=== PATIENT | female | born 1960 | race Caucasian/White ===

== ENCOUNTER 2018-06-15 13:50 | Emergency (ER) | payer BC ==
[~2018-06-15] VITALS: Ht 160 cm; Wt 67.1 kg
[~2018-06-15 13:50] MED LIST: ADVIL200 M1 PO; CARISOPRODOL350 MG PO; ULTRAM50 MG PO
--- OUTSIDE RECORDS SUMMARY | 2018-06-15 13:55 | XMS REPORT | Clinical Summary ---
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 Active escitalopram (LEXAPRO) 20 Take 20 mg by 0 MG tablet mouth every morning. Active HYDROcodone-acetaminophen Take 1 tablet 0 (NORCO) 10-325 mg per by mouth tablet every 6 (six) hours as needed for moderate pain. Active amoxicillin (AMOXIL) 875 Take 875 mg 0 MG tablet by mouth every 4 (four) hours. 06/17/2017 Discontinued clonAZEPAM (KlonoPIN) 0.5 0 06/06/201 MG tablet 8 06/17/2017 Discontinued carisoprodol (SOMA) 350 0 MG tablet 8 08/12/2017 Discontinued meloxicam (MOBIC) 15 mg Take 15 mg by 0 tablet mouth as 8 needed. 11/14/2017 Discontinued ULTRAM 50 mg tablet Take 50 mg by 0 mouth every 8 12 (twelve) hours. 06/17/2017 Discontinued carisoprodol (SOMA) 350 Take 350 mg 0 MG tablet by mouth 3 8 (three) times a day as needed. 06/17/2017 Discontinued meloxicam (MOBIC) 15 mg 0 tablet 8 04/02/2018 Discontinued carisoprodol (SOMA) 350 Take 350 mg 0 MG tablet by mouth 3 7 (three) times a day as needed. 07/03/2017 Discontinued mupirocin (BACTROBAN) 2 % Apply to 15 g 0 ointment nostrils 8 twice daily the day before surgery then once again the morning of and bring remainder with you . 08/02/2017 aspirin (ECOTRIN) 325 MG Take 1 tablet 60 tablet 0 enteric coated tablet (325 mg 8 total) by mouth 2 (two) times a day for 30 days. 07/21/2017 acetaminophen-codeine Take 1-2 40 tablet 0 (TYLENOL WITH CODEINE #3) tablets by 8 300-30 mg per tablet mouth every 6 (six) hours as needed for moderate pain for up to 10 days. 08/20/2017 Discontinued acetaminophen-codeine Take 1 tablet 10 tablet 0 (TYLENOL WITH CODEINE #3) by mouth 8 300-30 mg per tablet every 6 (six) hours as needed for moderate pain for up to 3 days. 09/19/2017 aspirin 81 mg chewable Chew 1 tablet 60 tablet 0 tablet (81 mg total) 8 2 (two) times a day for 30 days. 09/19/2017 docusate sodium (COLACE) Take 1 60 capsule 0 100 MG capsule capsule (100 8 mg total) by mouth 2 (two) times a day for 30 days. 09/06/2017 acetaminophen-codeine Take 1-2 40 tablet 0 (TYLENOL WITH CODEINE #3) tablets by 8 300-30 mg per tablet mouth every 6 (six) hours as needed for moderate pain for up to 10 days. 09/16/2017 acetaminophen-codeine Take 1-2 30 tablet 0 (TYLENOL WITH CODEINE #3) tablets by 8 300-30 mg per tablet mouth every 4 (four) hours as needed for moderate pain for up to 10 days. 09/30/2017 acetaminophen-codeine Take 1 tablet 30 tablet 0 (TYLENOL WITH CODEINE #3) by mouth 8 300-30 mg per tablet every 6 (six) hours as needed for moderate pain for up to 10 days. 10/02/2017 Discontinued acetaminophen-codeine Take 1-2 30 tablet 0 (TYLENOL WITH CODEINE #3) tablets by 8 300-30 mg per tablet mouth every 6 (six) hours as needed for moderate pain for up to 10 days. 10/11/2017 Discontinued acetaminophen-codeine Take 1-2 30 tablet 0 (TYLENOL WITH CODEINE #3) tablets by 8 300-30 mg per tablet mouth every 6 (six) hours as needed for moderate pain for up to 10 days. 10/11/2017 Discontinued acetaminophen-codeine Take 1-2 30 tablet 0 (TYLENOL WITH CODEINE #3) tablets by 8 300-30 mg per tablet mouth every 6 (six) hours as needed for moderate pain for up to 10 days. 10/18/2017 acetaminophen-codeine Take 1 tablet 30 tablet 0 (TYLENOL WITH CODEINE #3) by mouth 8 300-30 mg per tablet every 6 (six) hours as needed for moderate pain for up to 7 days. 11/07/2017 traMADol (ULTRAM) 50 mg Take 1 tablet 30 tablet 0 tablet (50 mg total) 8 by mouth every 6 (six) hours as needed for moderate pain for up to 10 days. 11/21/2017 ULTRAM 50 mg tablet Take 1 tablet 30 tablet 0 (50 mg total) 8 by mouth every 6 (six) hours as needed for moderate pain for up to 7 days. 12/07/2017 traMADol (ULTRAM) 50 mg Take 1 tablet 30 tablet 0 tablet (50 mg total) 8 by mouth every 6 (six) hours as needed for moderate pain for up to 10 days. 12/16/2017 acetaminophen-codeine Take 1-2 30 tablet 0 (TYLENOL WITH CODEINE #3) tablets by 8 300-30 mg per tablet mouth every 6 (six) hours as needed for mild pain for up to 10 days. 12/19/2017 Discontinued traMADol (ULTRAM) 50 mg Take 1 tablet 30 tablet 0 tablet (50 mg total) 8 by mouth every 6 (six) hours as needed for moderate pain for up to 10 days. 12/29/2017 traMADol (ULTRAM) 50 mg Take 1 tablet 30 tablet 0 201 tablet (50 mg total) 8 by mouth every 6 (six) hours as needed for moderate pain for up to 10 days. 12/29/2017 traMADol (ULTRAM) 50 mg Take 1 tablet 30 tablet 0 tablet (50 mg total) 8 by mouth every 6 (six) hours as needed for moderate pain for up to 10 days. 01/09/2018 traMADol (ULTRAM) 50 mg Take 1 tablet 30 tablet 0 tablet (50 mg total) 8 by mouth every 6 (six) hours as needed for moderate pain for up to 10 days. 01/19/2018 traMADol (ULTRAM) 50 mg Take 1 tablet 30 tablet 0 tablet (50 mg total) 8 by mouth every 6 (six) hours as needed for moderate pain for up to 10 days. 02/02/2018 acetaminophen-codeine Take 1-2 30 tablet 0 (TYLENOL WITH CODEINE #3) tablets by 8 300-30 mg per tablet mouth every 6 (six) hours as needed for mild pain for up to 10 days. 02/09/2018 acetaminophen-codeine Take 1-2 30 tablet 0 (TYLENOL WITH CODEINE #3) tablets by 8 300-30 mg per tablet mouth every 6 (six) hours as needed for mild pain for up to 10 days. 03/02/2018 acetaminophen-codeine Take 1-2 30 tablet 0 (TYLENOL WITH CODEINE #3) tablets by 8 300-30 mg per tablet mouth every 6 (six) hours as needed for mild pain for up to 10 days. 03/21/2018 acetaminophen-codeine Take 1-2 30 tablet 0 (TYLENOL WITH CODEINE #3) tablets by 8 300-30 mg per tablet mouth every 4 (four) hours as needed for moderate pain for up to 10 days. 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 Overview: Added automatically from request for surgery [id number] Arthritis of right hip 07/01/2017 Arthritis of left hip 06/12/2017 Encounters Care Team Description Date Type Specialty Aaron Perkins MD INJECTION, HIP; ASPIRATION 04/04/2018 Surgery Orthopedic Surgery Ed Hernandez MD 04/04/2018 Anesthesia Orthopedic Surgery Event Aaron Perkins MD Arthritis of left hip (Primary Dx) 04/04/2018 Hospital Orthopedic Surgery Encounter Aaron May MD 04/02/2018 Anesthesia Orthopedic Surgery Event Favian Fournier MD Canceled INJECTION, HIP; ASPIRATION 04/02/2018 Surgery Orthopedic Surgery Favian Fournier MD 04/02/2018 Hospital Orthopedic Surgery Encounter Moriah Hook MA 04/02/2018 Orders Only Orthopedic Surgery Moriah Hook MA 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, initial encounter (HCC) (Primary Dx) 04/02/2018 Orders Only Orthopedic Surgery Aaron Perkins MD Left hip pain 03/31/2018 Lab Lab Asked, No Pcp Aaron Perkins MD Left hip pain 03/31/2018 Hospital Radiology Encounter Aaron Perkins MD 03/31/2018 Hospital Radiology Encounter Aaron Perkins MD Status post left hip replacement (Primary Dx); Status post right hip replacement; Pain of left hip joint; Left hip pain 03/26/2018 Office Visit Orthopedic Surgery Roopa Orozco MA Left hip pain (Primary Dx) 03/26/2018 Orders Only Orthopedic Surgery Roopa Orozco MA Left hip pain (Primary Dx) 03/26/2018 Orders Only Orthopedic Surgery Roopa Orozco MA Left hip pain (Primary Dx) 03/26/2018 Orders Only Orthopedic Surgery Aaron Perkins MD 03/19/2018 Abstract Orthopedic Surgery Aaron Perkins MD Presence of left artificial hip joint (Primary Dx) 03/19/2018 Transcribe Physical Therapy Orders Yamini Murillo 03/11/2018 Orders Only Orthopedic Surgery Roopa Orozco MA 02/20/2018 Orders Only Sports Medicine Aaron Perkins MD 02/18/2018 Abstract Orthopedic Surgery Aaron Perkins MD 02/10/2018 Refill Orthopedic Surgery Aaron Perkins MD 02/10/2018 Refill Orthopedic Surgery Roopa Orozco MA 01/30/2018 Orders Only Orthopedic Surgery Roopa Orozco MA 01/30/2018 Orders Only Orthopedic Surgery Roopa Orozco MA H/O total hip arthroplasty, left (Primary Dx) 01/23/2018 Orders Only Orthopedic Surgery Orozco, Roopa, MA 01/23/2018 Orders Only Orthopedic Surgery Orozco, Roopa, [place] 01/09/2018 Orders Only Orthopedic Surgery Orozco, Roopa, [place] 01/09/2018 Orders Only Orthopedic Surgery Orozco, Roopa, [place] 12/30/2017 Orders Only Orthopedic Surgery Aaron Perkins MD 12/27/2017 Refill Orthopedic Surgery Orozco, Roopa, [place] 12/19/2017 Orders Only Orthopedic Surgery Orozco, Roopa, [place] 12/13/2017 Orders Only Orthopedic Surgery IncAaron bell MD Status post left hip replacement (Primary Dx) 12/06/2017 Office Visit Orthopedic Surgery Orozco, Roopa, [place] 12/06/2017 Orders Only Orthopedic Surgery Orozco, Roopa, [place] Left hip pain (Primary Dx) 12/06/2017 Orders Only Orthopedic Surgery Orozco, Roopa, MA 11/28/2017 Orders Only Orthopedic Surgery Orozco, Roopa, [place] 11/27/2017 Orders Only Orthopedic Surgery Schultz, Nayely, MA 11/14/2017 Orders Only Orthopedic Surgery Orozco, Roopa, MA 10/28/2017 Orders Only Orthopedic Surgery Schultz, Nayely, MA 10/11/2017 Orders Only Orthopedic Surgery Orozco, Roopa, MA 10/02/2017 Orders Only Orthopedic Surgery Orozco, Roopa, MA 10/02/2017 Orders Only Orthopedic Surgery Oorzco, Roopa, MA 10/02/2017 Orders Only Orthopedic Surgery Schultz, Nayely, MA 09/20/2017 Orders Only Orthopedic Surgery Orozco, Roopa, [place] 09/06/2017 Orders Only Orthopedic Surgery Aaron Perkins MD Status post left hip replacement (Primary Dx) 09/05/2017 Office Visit Orthopedic Surgery Sugey Schultze, MA 08/27/2017 Orders Only Orthopedic Surgery Aaron Perkins MD ARTHROPLASTY, HIP, TOTAL 08/19/2017 Surgery Orthopedic Surgery Shanti Hernandez APRN 08/19/2017 Anesthesia Orthopedic Surgery Event Aaron Perkins MD Arthritis of left hip 08/19/2017 Hospital Orthopedic Surgery - Encounter 08/20/2017 Nayely Schultz, MA 08/16/2017 Orders Only Orthopedic Surgery Aaron Perkins MD Preoperative testing (Primary Dx) 08/12/2017 Pre-Admit Pre-Admission Testing Testing Appointment Aaron Perkins MD Status post right hip replacement (Primary Dx); Arthritis of left hip 07/18/2017 Office Visit Orthopedic Surgery Nayely Schultz MA 07/11/2017 Orders Only Orthopedic Surgery Roopa Orozco MA 07/03/2017 Telephone Orthopedic Surgery Aaron Perkins MD ARTHROPLASTY, HIP, TOTAL 07/02/2017 Surgery Orthopedic Surgery Shanti Hernandez, [employer] 07/02/2017 Anesthesia Orthopedic Surgery Event Aaron Perkins MD Arthritis of right hip 07/02/2017 Hospital Orthopedic Surgery - Encounter 07/03/2017 Roopa Orozco MA 07/01/2017 Orders Only Orthopedic Surgery Aaron Perkins MD 06/17/2017 Hospital Radiology Encounter Aaron Perkins MD Pre-op testing (Primary Dx) 06/17/2017 Pre-Admit Pre-Admission Testing Testing Appointment after 06/14/2017 Social History Date Tobacco Use Types Packs/Day Years Used Quit: 06/16/2017 Current Every Day Smoker Cigarettes 1 30 Smokeless Tobacco: Never Used Alcohol Use Drinks/Week oz/Week Comments Yes 3-4 drinks a week Sex Assigned at Date Recorded Not on file Industry Job Start Date Occupation Not on file Not on file Not on file Travel End Travel History Travel Start No recent travel history available. Last Filed Vital Signs Time Taken Vital Sign Reading 04/04/2018 10:15 AM OUTREACH TEAM MEMBER Blood Pressure 140/73 04/04/2018 10:15 AM OUTREACH TEAM MEMBER Pulse 63 04/04/2018 10:15 AM OUTREACH TEAM MEMBER Temperature 36.8 C (98.3 F) 04/04/2018 10:15 AM OUTREACH TEAM MEMBER Respiratory Rate 16 04/04/2018 10:15 AM OUTREACH TEAM MEMBER Oxygen Saturation 96% - Inhaled Oxygen - Concentration 04/04/2018 7:06 AM OUTREACH TEAM MEMBER Weight 72.9 kg (160 lb 11.2 oz) 04/04/2018 7:06 AM OUTREACH TEAM MEMBER Height 160 cm (5' 3") 04/04/2018 7:06 AM OUTREACH TEAM MEMBER Body Mass Index 28.47 Plan of Treatment Health Maintenance Due Date Last Done Comments CERVICAL CANCER SCREENING 08/06/1980 BREAST CANCER SCREENING 08/06/2009 COLON CANCER SCREENING 08/06/2009 SHINGLES VACCINES (#1) 08/06/2009 INFLUENZA VACCINE 11/20/2017 Implants Device Identifier Shelf Expiration Date Model / Serial / Lot Implanted Type Area Manufactur er 06/08/2027 [id number] / / [id number] Acetabular Shell 3 Hole - IPM Right: Hip BIOMET, [id number] [employer] Implanted: 07/02/2017 (Quantity not DEVICES on file) 04/18/2022 [id number] / / [id number] Neutral E1 Liner 36mm E - IPM Right: Hip BIOMET, [id number] [employer] Implanted: 07/02/2017 (Quantity not DEVICES on file) 01/30/2027 [id number] / / [id number] Tprlc 133 Fp Type1 Pps So 6.0, IPM Right: Hip BIOMET, Taperloc Complete Stem - [id number] [employer] Implanted: 07/02/2017 (Quantity not DEVICES on file) 12/27/2026 [id number] / / [id number] Cer Bioloxd Mod Hd 36mm -3 Nk - IPM Right: Hip BIOMET, [id number] [employer] Implanted: 07/02/2017 (Quantity not DEVICES on file) 05/05/2027 [id number] / / [id number] Acetabular Shell 3 Hole - IPM Left: Hip BIOMET, [id number] [employer] Implanted: Qty: 1 on 08/19/2017 by Aaron Abernathy MD 05/21/2022 [id number] / / [id number] Neutral E1 Liner 36mm E - IPM Left: Hip BIOMET, [id number] [employer] Implanted: Qty: 1 on 08/19/2017 by Aaron Abernathy MD 05/14/2027 [id number] / / [id number] Tprlc 133 Fp Type1 Pps So 6.0, IPM Left: Hip BIOMET, Taperloc Complete Stem - [id number] [employer] Implanted: Qty: 1 on 08/19/2017 by Aaron Abernathy MD 01/02/2027 12 [id number] / / [id number] Cer Bioloxd Mod Hd 36mm -3 Nk - IPM Left: Hip BIOMET, [id number] [employer] Implanted: Qty: 1 on 08/19/2017 by Aaron Abernathy MD 06/20/2027 [id number] / / [id number] Screw Bone Slf-Tap 6.5x25mm Trilogy Orthopedic Right: Hip [employer] - [id number] Trauma Implanted: 07/02/2017 (Quantity not Implants on file) 05/22/2027 [id number] / / [id number] Screw Bone Slf-Tap 6.5x20mm Trilogy Orthopedic Right: Hip [employer] - [id number] Trauma Implanted: 07/02/2017 (Quantity not Implants on file) 08/20/2027 [id number] / / [id number] Screw Bone Slf-Tap 6.5x20mm Trilogy Orthopedic Left: Hip [employer] - [id number] Trauma Implanted: Qty: 1 on 08/19/2017 by Aaron Smith MD 07/21/2027 [id number] / / [id number] Screw Bone Slf-Tap 6.5x20mm Trilogy Orthopedic Left: Hip [employer] - [id number] Trauma Implanted: Qty: 1 on 08/19/2017 by Aaron Smith MD Procedures Comments Procedure Name Priority Date/Time Associated Diagnosis OR [place] < 1 HOUR Routine 04/04/2018 8:30 [address] TEAM MEM[address] CT AN ELECTIVE Routine 04/04/2018 SUPRAGLOTTIC AIRWAY 8:08 AM OUTREACH TEAM MEMBER Procedure Note - Rob Ivey - 04/04/2018 8:08 AM OUTREACH TEAM MEMBER ANESTHESIA INTUBATION Date/Time: 04/04/2018 8:02 AM Performed by: Rob Ivey Authorized by: Ed Hernandez MD Location: OR Urgency: Elective Difficult Airway: No Resident/C RNA/AA: Rob Ivey Preoxygena naseem with 100% O2: Yes C-spine Precaution s Maintained Throughout : Yes Mask Ventilatio n: Easy mask Final Airway Type: Supraglott ic airway Final LMA: I-Gel LMA Size: 4 Number of Attempts at Approach: 1 atraumati c INJECTION, HIP 04/04/2018 Infection associated with 8:00 AM OUTREACH TEAM MEMBER internal left hip prosthesis, initial encounter (HCC) Special Needs REQ 0800 START POC PANEL 4 Routine 04/02/2018 12:11 PM OUTREACH TEAM MEMBER ECG 12-LEAD STAT 04/02/2018 11:58 AM OUTREACH TEAM MEMBER D-DIMER Routine 03/31/2018 Left hip pain 12:49 PM OUTREACH TEAM MEMBER BONE DENSITY PERIPHERAL Routine 03/31/2018 Left hip pain 12:28 PM OUTREACH TEAM MEMBER BONE DENSITY STAT 03/31/2018 Left hip pain 12:28 PM OUTREACH TEAM MEMBER C-REACTIVE PROTEIN Routine 03/31/2018 Left hip pain 12:00 AM OUTREACH TEAM MEMBER SEDIMENTATION RATE Routine 03/31/2018 Left hip pain 12:00 AM OUTREACH TEAM MEMBER XR HIP 2-3 VIEWS LEFT Routine 03/26/2018 Left hip pain 3:47 PM OUTREACH TEAM MEMBER XR HIP 2-3 VIEWS LEFT Routine 12/06/2017 Left hip pain 9:52 AM CDT ZZESTIMATED GFR Routine 08/20/2017 4:00 AM CDT BASIC METABOLIC PANEL Routine 08/20/2017 4:00 AM CDT HC COMPLETE BLD COUNT Routine 08/20/2017 W/AUTO DIFF 4:00 AM CDT POC GLUCOSE Routine 08/19/2017 9:59 AM CDT SURGICAL PATHOLOGY Routine 08/19/2017 REQUEST 9:53 AM CDT XR PELVIS 1 OR 2 VW Routine 08/19/2017 9:23 AM CDT XR PELVIS 1 OR 2 VW Routine 08/19/2017 9:08 AM CDT ARTHROPLASTY, HIP, TOTAL 08/19/2017 Arthritis of left hip 8:00 AM CDT Special Needs BIOMET ANESTHESIA SPINAL BLOCK Routine 08/19/2017 7:56 AM CDT Procedure Note - Regine Madrid MD - 08/19/2017 7:56 AM CDT Spinal Block Performed by: REGINE MADRID Authorized by: REGINE MADRID Patient Location: Pre-op Start Time: 08/19/2017 7:49 AM End Time: 08/19/2017 7:52 AM Reason for Block: at surgeon's request Staff: Johnny manzo: REGINE MADRID Performed by: Anesthesidanika manzo patient identified , IV checked, site and side verified, risks and benefits discussed, procedure verified, surgical consent complete, patient position confirmed, monitors and equipment checked and pre-op evaluation complete TIme Out Performed: 08/19/2017 7:47 AM Spinal Block: Patient Position: Sitting Prep: Betadine Monitoring : Blood pressure monitoring , continuous pulse oximetry and heart rate Approach: Midline Interspace : L3-4 Injection Technique: Single injection Needle: Needle Type: Pencil-tip Needle Gauge: 25 G Assessment : Coagulatio n status: Coagulatio n status verified Block assessment : No apparent complicati ons and patient tolerated procedure well Notes: X 1 attempt @ 7cm POC GLUCOSE Routine 08/19/2017 6:48 AM CDT TYPE AND SCREEN Routine 08/12/2017 Preoperative testing 12:00 PM CDT CBC HEMOGRAM Routine 08/12/2017 Preoperative testing 12:00 PM CDT ZZESTIMATED GFR Routine 08/12/2017 11:45 AM CDT URINALYSIS SCREEN AND Routine 08/12/2017 Preoperative testing MICROSCOPY, WITH REFLEX 11:45 AM CDT TO CULTURE PROTHROMBIN TIME WITH INR Routine 08/12/2017 Preoperative testing 11:45 AM CDT PARTIAL THROMBOPLASTIN Routine 08/12/2017 Preoperative testing TIME (PTT) 11:45 AM CDT COMPREHENSIVE METABOLIC Routine 08/12/2017 Preoperative testing PANEL 11:45 AM CDT URINE CULTURE Routine 08/12/2017 11:45 AM CDT CBC WITH PLATELET AND Routine 07/03/2017 DIFFERENTIAL 7:21 AM CDT ZZESTIMATED GFR Routine 07/03/2017 4:00 AM CDT PHOSPHORUS LEVEL Routine 07/03/2017 4:00 AM CDT MAGNESIUM LEVEL Routine 07/03/2017 4:00 AM CDT BASIC METABOLIC PANEL Routine 07/03/2017 4:00 AM CDT XR PELVIS 1 OR 2 VW Routine 07/02/2017 11:12 AM CDT POC GLUCOSE Routine 07/02/2017 10:59 AM CDT SURGICAL PATHOLOGY Routine 07/02/2017 REQUEST 10:20 AM CDT XR PELVIS 1 OR 2 VW Routine 07/02/2017 10:16 AM CDT ARTHROPLASTY, HIP, TOTAL 07/02/2017 Arthritis of right hip 10:00 AM CDT ANESTHESIA SPINAL BLOCK Routine 07/02/2017 8:52 AM CDT Procedure Note - Solange Miller MD - 07/02/2017 8:52 AM CDT Spinal Block Performed by: SOLANGE MILLER Authorized by: SOLANGE MILLER Patient Location: Pre-op Start Time: 07/02/2017 8:45 AM End Time: 07/02/2017 8:51 AM Reason for Block: at surgeon's request Staff: Anesthesidanika taylort: SOLANGE MILLER Performed by: Anesthesio jovany patient identified , IV checked, site and side verified, risks and benefits discussed, procedure verified, surgical consent complete, patient position confirmed, monitors and equipment checked and pre-op evaluation complete TIme Out Performed: 07/02/2017 8:45 AM Spinal Block: Patient Position: Sitting Prep: Betadine and patient draped Monitoring : Continuous pulse oximetry, heart rate and blood pressure monitoring Approach: Midline Interspace : L2-3 Injection Technique: Single injection Needle: Needle Type: Pencil-tip Needle Gauge: 25 G Assessment : Coagulatio n status: Coagulatio n status verified Block assessment : No apparent complicati ons and patient tolerated procedure well Post procedure: Sterile dressing applied POC GLUCOSE Routine 07/02/2017 8:19 AM CDT XR CHEST 2 VW Routine 06/17/2017 Pre-op testing 6:00 PM OUTREACH TEAM MEMBER ECG PRE/POST OP Routine 06/17/2017 Pre-op testing 5:43 PM OUTREACH TEAM MEMBER ZZESTIMATED GFR Routine 06/17/2017 5:27 PM OUTREACH TEAM MEMBER HEMOGLOBIN A1C Routine 06/17/2017 Pre-op testing 5:27 PM OUTREACH TEAM MEMBER URINALYSIS SCREEN AND Routine 06/17/2017 Pre-op testing MICROSCOPY, WITH REFLEX 5:27 PM OUTREACH TEAM MEMBER TO CULTURE TYPE AND SCREEN Routine 06/17/2017 Pre-op testing 5:27 PM OUTREACH TEAM MEMBER PROTHROMBIN TIME WITH INR Routine 06/17/2017 Pre-op testing 5:27 PM OUTREACH TEAM MEMBER PARTIAL THROMBOPLASTIN Routine 06/17/2017 Pre-op testing TIME (PTT) 5:27 PM OUTREACH TEAM MEMBER COMPREHENSIVE METABOLIC Routine 06/17/2017 Pre-op testing PANEL 5:27 PM OUTREACH TEAM MEMBER CBC HEMOGRAM Routine 06/17/2017 Pre-op testing 5:27 PM OUTREACH TEAM MEMBER URINE CULTURE Routine 06/17/2017 5:27 PM OUTREACH TEAM MEMBER after 06/14/2017 Results * OR FL < 1 Hour (04/04/2018 8:30 AM OUTREACH TEAM MEMBER) Narrative Performed At EXAMINATION:OR FL 1 HOUR HM [facility]IANT C-arm fluoroscopy was requested in OR. Location:[facility]19 - OR15 Procedure: Left Hip Aspiration Start Time:45 End Time:0830 Fluoro Time:9seconds Dose (mGy):1.51mGy Tech(s):jm IMPRESSION: Separate operative report will be issued by the physician performing the procedure. [id number] Procedure Note Hm Interface, Radiology Results Incoming - 04/04/2018 9:33 PM OUTREACH TEAM MEMBER EXAMINATION: OR FL 1 HOUR C-arm fluoroscopy was requested in OR. Location: [facility]19 - OR15 Procedure: Left Hip Aspiration Start Time: 45 End Time: 0830 Fluoro Time: 9seconds Dose (mGy): 1.51mGy Tech(s): jm IMPRESSION: Separate operative report will be issued by the physician performing the procedure. [id number] Performing Organization Address [facility] Phone Number [facility] [address] [place] [address] * POC panel 4 (04/02/2018 12:11 PM OUTREACH TEAM MEMBER) POC sodium 139 135 - 148 mmol/L [facility] POC potassium 4.0 3.5 - 5.0 mmol/L [facility] POC hematocrit 45 37 - 47 % [facility] Comment: HOSPITAL Meter ID: [id number] Armature Tester: Pepito Boatengn POC glucose 88 65 - 99 mg/dL [facility] Performing Organization Address [facility] Phone Number [facility] DEPARTMENT OF [address] [place] [address] PATHOLOGY AND GENOMIC MEDICINE [address] * ECG 12 lead (04/02/2018 11:58 AM OUTREACH TEAM MEMBER) Ventricular rate 61 [facility] M[address] Atrial rate [address] [facility] MUSE CT interval 168 [facility] MUSE QRSD interval 78 [facility] MUSE QT interval 438 [facility] MUSE QTC interval 440 [facility] MUSE P axis 1 59 [facility] MUSE QRS axis [address] [facility] MUSE T wave axis [address] [facility] MUSE EKG impression Normal sinus rhythm with sinus [facility] MUSE arrhythmia-Low voltage QRS-Borderline ECG-In automated comparison with ECG of 17-JUN-2017 17:43,-No significant change was found- Narrative Performed At Performing Organization Address [facility] Phone Number [facility] [address] [place] [address] * D-dimer (03/31/2018 12:49 PM OUTREACH TEAM MEMBER) D-dimer 0.96 (H) <0.50 mcg/mL FEU [facility] Comment: [place] The D-Dimer test is used frequently to exclude an acute PE or DVT. In patients with a low to moderate clinical risk assessment and a D-Dimer result <0.50 mcg/mL FEU, the likelihood of a PE or DVT is very low. However, a thromboembolic event should not be excluded solely on the basis of the D-Dimer level. Increased levels of D-Dimer are associated with a PE, DVT, DIC, malignancies, inflammation, sepsis, surgery, trauma, , and advancing patient age. [Jacob 2006 11:295(2):199-207] For additional information, please refer to: http://education.[employer]/faq/VCG623 (This link is being provided for informational/ educational purposes only) Specimen Blood Resulting Agency Comment Performing Organization Information: Site ID: [id number] Name: [facility] Address: [address] [place] [id number] Director: Kiana Krause Performing Organization Address City/State/Zipcode Phone Number [place] [address] * Bone Density Peripheral (03/31/2018 12:28 PM OUTREACH TEAM MEMBER) Narrative Performed At EXAMINATION:BONE DENSITY PERIPHERAL RADIANT CLINICAL HISTORY:M25.552 Pain in left hip, LEFT HIP PAIN COMPARISON:None. The results of this study expressed as bone mineral density (BMD) were as follows: Forearm (Radius 33%): BMD: 0.808 g/cm2 T-Score: -0.8 Z score: 0 Impression: Bone Mineral Density measurements as noted. A copy of this scans including a report detailing these results will follow. Note: The world health organization (WHO) has classified the patient's T-score as follows: Normal=T score at or above -1.0 SD Osteopenia=T score between -1.0 and -2.5 SD Osteoporosis=T score at or below -2.[address] [facility]-[id number] Procedure Note Interface, Radiology Results Incoming - 03/31/2018 12:58 PM OUTREACH TEAM MEMBER EXAMINATION: BONE DENSITY PERIPHERAL CLINICAL HISTORY: M25.552 Pain in left hip, LEFT HIP PAIN COMPARISON: None. The results of this study expressed as bone mineral density (BMD) were as follows: Forearm (Radius 33%): BMD: 0.808 g/cm2 T-Score: -0.8 Z score: 0 Impression: Bone Mineral Density measurements as noted. A copy of this scans including a report detailing these results will follow. Note: The world health organization (WHO) has classified the patient's T-score as follows: Normal=T score at or above -1.0 SD Osteopenia=T score between -1.0 and -2.5 SD Osteoporosis=T score at or below -2.[address] [facility]-[id number] Performing Organization Address City/State/Zipcode Phone Number [facility] [address] [place] [address] * Bone Density (03/31/2018 12:28 PM OUTREACH TEAM MEMBER) Narrative Performed At EXAMINATION:BONE DENSITY RADIANT CLINICAL HISTORY:M25.552 Pain in left hip, LEFT HIP PAIN COMPARISON:None. The results of this study expressed as bone mineral density (BMD) were as follows: AP spine (L1-L4) BMD: 1.097 g/cm2 T-Score: -0.7 Z score:0.2 Previous: No prior exam Trabecular Bone Score (TBS): TBS L1-L4: 1.263,(>1.350 normal, 1.200-1.350 partially degraded microarchitecture, <1.200 degraded microarchitecture) The 10 year probability of fracture, adjusted for FRAX: Major Osteoporotic Fracture: 71.7% Hip Fracture:64.4% Patient has bilateral hip prostheses in place Left femoral neck: BMD: 0.264 g/cm2 T-Score: -5.6 Z score: -4.6 Right femoral neck: BMD: 0.8 g/cm2 T-Score: -1.7 Z score: -0.7 Impression: Bone mineral density values as above. [facility]-[id number] A copy of this scans including a report detailing these results will follow. Note: The world health organization (WHO) has classified the patient's T-score as follows: Above (-1) as normal (-1) to (-2.5) as low (osteopenia) Below (-2.5) as abnormally low (osteoporosis, increased fracture risk) Procedure Note Interface, Radiology Results Incoming - 03/31/2018 12:57 PM OUTREACH TEAM MEMBER EXAMINATION: BONE DENSITY CLINICAL HISTORY: M25.552 Pain in left hip, LEFT HIP PAIN COMPARISON: None. The results of this study expressed as bone mineral density (BMD) were as follows: AP spine (L1-L4) BMD: 1.097 g/cm2 T-Score: -0.7 Z score:0.2 Previous: No prior exam Trabecular Bone Score (TBS): TBS L1-L4: 1.263, (>1.350 normal, 1.200-1.350 partially degraded microarchitecture, <1.200 degraded microarchitecture) The 10 year probability of fracture, adjusted for FRAX: Major Osteoporotic Fracture: 71.7% Hip Fracture: 64.4% Patient has bilateral hip prostheses in place Left femoral neck: BMD: 0.264 g/cm2 T-Score: -5.6 Z score: -4.6 Right femoral neck: BMD: 0.8 g/cm2 T-Score: -1.7 Z score: -0.7 Impression: Bone mineral density values as above. [facility]-[id number] A copy of this scans including a report detailing these results will follow. Note: The world health organization (WHO) has classified the patient's T-score as follows: Above (-1) as normal (-1) to (-2.5) as low (osteopenia) Below (-2.5) as abnormally low (osteoporosis, increased fracture risk) Performing Organization Address City/[facility] Phone Number [employer] [address] [place] [address] * Sedimentation rate (03/31/2018 12:00 AM OUTREACH TEAM MEMBER) Sedimentation rate 6 < OR=30 mm/h [facility] [employer] [place] Specimen Blood Resulting Agency Comment Performing Organization Information: Site ID: [id number] Name: [facility] Address: [address] [place] [id number] Director: Kiana Krause Performing Organization Address [facility] Phone Number [email or web address] [place] [phone] * C-reactive protein (03/31/2018 12:00 AM OUTREACH TEAM MEMBER) CRP 13.6 (H) <8.0 mg/L [employer] [place] Specimen Blood Resulting Agency Comment Performing Organization Information: Site ID: [id number] Name: [facility] Address: [address] [place] [id number] Director: Kiana Krause Performing Organization Address [facility] Phone Number [email or web address] [place] [phone] * XR Hip 2-3 View Left (03/26/2018 3:47 PM OUTREACH TEAM MEMBER) Only the most recent of 2 results within the time period is included. Narrative Performed At [employer] Hip radiographs demonstrate a well-positioned left hip arthroplasty. Components appear stable. Excellent jain of leg length and offset. Performing Organization Address [facility]/Zipcode Phone Number [facility] [address] [place] [address] * Estimated GFR (08/20/2017 4:00 AM CDT) Only the most recent of 4 results within the time period is included. GFR Non Af Amer >90 mL/min/1.[address] [facility] DEPARTMENT OF PATHOLOGY AND GENOMIC MEDICINE GFR Af Amer >90 mL/min/1.[address] [facility] DEPARTMENT OF Comment: PATHOLOGY AND Chronic kidney disease: <60 GENOMIC MEDICINE mL/min/1.73m2 Kidney failure: <15 mL/min/1.73m2 The estimated GFR is calculated from the IDMS-traceable Modification of Diet in Renal Disease Equation. The accuracy of the calculation is poor when the creatinine is normal. Calculated values >90 mL/min/1.73m2 are not reported. This equation has not been validated in children (<18 years), women, the elderly (>70 years), or ethnic groups other than Caucasians and Americans. Specimen Plasma specimen Performing Organization Address City/[facility]/Zipcode Phone Number [facility] [address] [place] [address] PATHOLOGY AND [employer] [facility] * CBC with platelet and differential (08/20/2017 4:00 AM CDT) Only the most recent of 2 results within the time period is included. WBC 10.06 4.50 - 11.00 k/uL [facility] DEPARTMENT OF PATHOLOGY AND GENOMIC MEDICINE RBC 3.63 (L) 4.20 - 5.50 m/uL [facility] DEPARTMENT OF PATHOLOGY AND GENOMIC MEDICINE HGB 11.8 (L) 12.0 - 16.0 g/dL [facility] DEPARTMENT OF PATHOLOGY AND GENOMIC MEDICINE HCT 35.2 (L) 37.0 - 47.0 % [facility] DEPARTMENT OF PATHOLOGY AND GENOMIC MEDICINE MCV 97.0 82.0 - 100.[address] [facility] DEPARTMENT OF PATHOLOGY AND GENOMIC MEDICINE MCH 32.5 27.0 - 34.[address] [facility] DEPARTMENT OF PATHOLOGY AND GENOMIC MEDICINE MCHC 33.5 31.0 - 37.0 g/dL [facility] DEPARTMENT OF PATHOLOGY AND GENOMIC MEDICINE RDW - SD 47.7 37.0 - 55.[address] [facility] DEPARTMENT OF PATHOLOGY AND GENOMIC MEDICINE MPV 9.2 8.8 - 13.[address] [facility] DEPARTMENT OF PATHOLOGY AND GENOMIC MEDICINE Platelet count 208 150 - 400 k/uL [facility] DEPARTMENT OF PATHOLOGY AND GENOMIC MEDICINE Nucleated RBC 0.00 /[address] [facility] DEPARTMENT OF PATHOLOGY AND GENOMIC MEDICINE Neutrophils 85.5 (H) 39.0 - 69.0 % [facility] DEPARTMENT OF PATHOLOGY AND GENOMIC MEDICINE Lymphocytes 6.3 (L) 25.0 - 45.0 % [facility] DEPARTMENT OF PATHOLOGY AND GENOMIC MEDICINE Monocytes 7.5 0.0 - 10.0 % [facility] DEPARTMENT OF PATHOLOGY AND GENOMIC MEDICINE Eosinophils 0.1 0.0 - 5.0 % [facility] DEPARTMENT OF PATHOLOGY AND GENOMIC MEDICINE Basophils 0.2 0.0 - 1.0 % [facility] DEPARTMENT OF PATHOLOGY AND GENOMIC MEDICINE Immature granulocytes 0.4Comment: "Immature 0.0 - 1.0 % [facility] DEPARTMENT OF granulocytes" (promyelocytes, PATHOLOGY AND myelocytes, metamyelocytes) [facility] Specimen Blood Performing Organization Address City/[facility] [place] [address] PATHOLOGY [facility] [employer] [facility] * Basic metabolic panel (08/20/2017 4:00 AM CDT) Only the most recent of 2 results within the time period is included. Sodium 139 135 - 148 mEq/L [facility] DEPARTMENT OF PATHOLOGY AND GENOMIC MEDICINE Potassium 4.3 3.5 - 5.0 mEq/L [facility] DEPARTMENT OF PATHOLOGY AND GENOMIC MEDICINE Chloride 102 98 - 112 mEq/L [facility] DEPARTMENT OF PATHOLOGY AND GENOMIC MEDICINE CO2 25 24 - 31 mEq/L [facility] DEPARTMENT OF PATHOLOGY AND GENOMIC MEDICINE Anion gap 12 7 - 15 mEq/L [facility] DEPARTMENT OF Comment: PATHOLOGY AND Starting from July [facility] MEDICINE , anion gap calculation no longer incorporates potassium. Please note the change. BUN 4 (L) 6 - 20 mg/dL [facility] DEPARTMENT OF PATHOLOGY AND GENOMIC MEDICINE Creatinine 0.5 0.5 - 0.9 mg/dL [facility] DEPARTMENT OF PATHOLOGY AND GENOMIC MEDICINE Glucose 126 (H) 65 - 99 mg/dL [facility] DEPARTMENT OF PATHOLOGY AND GENOMIC MEDICINE Calcium 8.6 8.3 - 10.2 mg/dL [facility] DEPARTMENT OF PATHOLOGY AND GENOMIC MEDICINE Specimen Plasma specimen Performing Organization Address City/[facility] Phone Number [address] [address] PATHOLOGY AND GENOMIC MEDICINE * POC glucose (08/19/2017 9:59 AM CDT) Only the most recent of 4 results within the time period is included. POC glucose 132 (H) 65 - 99 mg/dL [facility] DEPARTMENT OF Comment: PATHOLOGY AND [facility] Notified RN GENOMIC MEDICINE Meter ID: [id number] Armature Tester: Mitul Vannessa Performing Organization Address City/State/Zipcode Phone Number [facility] DEPARTMENT OF [address] [place] [address] PATHOLOGY AND GENOMIC MEDICINE * Surgical pathology request (08/19/2017 9:53 AM CDT) Only the most recent of 2 results within the time period is included. [facility] DEPARTMENT OF PATHOLOGY AND GENOMIC MEDICINE Surgical pathology report See link below for PDF Lab [facility] DEPARTMENT OF Report PATHOLOGY AND GENOMIC MEDICINE Result status This is Final Report to [facility] DEPARTMENT OF [id number] PATHOLOGY AND GENOMIC MEDICINE Performing Organization Address City/[facility] Phone Number [facility] [place] [address] PATHOLOGY AND GENOMIC MEDICINE * XR Pelvis 1 Or 2 Vw (08/19/2017 9:23 AM CDT) Only the most recent of 4 results within the time period is included. Narrative Performed At EXAMINATION:XR PELVIS 1 OR 2 VW RADIANT CLINICAL HISTORY:Hip replacement COMPARISON:Earlier today IMPRESSION: Film obtained during course of left total hip replacement demonstrates acetabular and femoral components to demonstrate good articular relation. Measurements were obtained. No fractures are seen. [facility]-[id number] Procedure Note Hm Interface, Radiology Results Incoming - 08/19/2017 9:29 AM CDT EXAMINATION: XR PELVIS 1 OR 2 VW CLINICAL HISTORY: Hip replacement COMPARISON: Earlier today IMPRESSION: Film obtained during course of left total hip replacement demonstrates acetabular and femoral components to demonstrate good articular relation. Measurements were obtained. No fractures are seen. [facility]-[id number] Performing Organization Address City/State/[place] [address] * CBC hemogram (08/12/2017 12:00 PM CDT) Only the most recent of 2 results within the time period is included. WBC 8.29 4.50 - 11.00 k/uL [facility] DEPARTMENT OF PATHOLOGY AND GENOMIC MEDICINE RBC 4.24 4.20 - 5.50 m/uL [facility] DEPARTMENT OF PATHOLOGY AND GENOMIC MEDICINE HGB 13.4 12.0 - 16.0 g/dL [facility] DEPARTMENT OF PATHOLOGY AND GENOMIC MEDICINE HCT 41.5 37.0 - 47.0 % [facility] DEPARTMENT OF PATHOLOGY AND GENOMIC MEDICINE MCV 97.9 82.0 - 100.[address] [facility] DEPARTMENT OF PATHOLOGY AND GENOMIC MEDICINE MCH 31.6 27.0 - 34.[address] [facility] DEPARTMENT OF PATHOLOGY AND GENOMIC MEDICINE MCHC 32.3 31.0 - 37.0 g/dL [facility] DEPARTMENT OF PATHOLOGY AND GENOMIC MEDICINE RDW - SD 49.4 37.0 - 55.[address] [facility] DEPARTMENT OF PATHOLOGY AND GENOMIC MEDICINE MPV 8.9 8.8 - 13.[address] [facility] DEPARTMENT OF PATHOLOGY AND GENOMIC MEDICINE Platelet count 264 150 - 400 k/uL [facility] DEPARTMENT OF PATHOLOGY AND GENOMIC MEDICINE Nucleated RBC 0.00 /[address] [facility] DEPARTMENT OF PATHOLOGY AND GENOMIC MEDICINE Specimen Blood Performing Organization Address City/[facility] [place] [address] PATHOLOGY AND GENOMIC MEDICINE * Type and screen (08/12/2017 12:00 PM CDT) Only the most recent of 2 results within the time period is included. ABO grouping O [facility] DEPARTMENT OF PATHOLOGY AND GENOMIC MEDICINE Rh type POS [facility] DEPARTMENT OF PATHOLOGY AND GENOMIC MEDICINE Antibody screen (gel) NEG [facility] DEPARTMENT OF PATHOLOGY AND GENOMIC MEDICINE Specimen Blood Performing Organization Address [facility] [place] [address] PATHOLOGY AND GENOMIC MEDICINE * Urinalysis screen and microscopy, with reflex to culture (08/12/2017 11:45 AM CDT) Only the most recent of 2 results within the time period is included. Specimen site Clean catch [facility] DEPARTMENT OF PATHOLOGY AND GENOMIC MEDICINE Color, UA Yellow [facility] DEPARTMENT OF PATHOLOGY AND GENOMIC MEDICINE Appearance, UA Clear [facility] DEPARTMENT OF PATHOLOGY AND GENOMIC MEDICINE Specific gravity, UA 1.019 1.001 - 1.035 [facility] DEPARTMENT OF PATHOLOGY AND GENOMIC MEDICINE pH, UA 6.0 5.0 - 8.5 [facility] DEPARTMENT OF PATHOLOGY AND GENOMIC MEDICINE Protein, UA Negative Negative [facility] DEPARTMENT OF PATHOLOGY AND GENOMIC MEDICINE Glucose, UA Negative Negative [facility] DEPARTMENT OF PATHOLOGY AND GENOMIC MEDICINE Ketones, UA Negative Negative [facility] DEPARTMENT OF PATHOLOGY AND GENOMIC MEDICINE Bilirubin, UA Negative Negative [facility] DEPARTMENT OF PATHOLOGY AND GENOMIC MEDICINE Blood, UA Small (A) Negative [facility] DEPARTMENT OF PATHOLOGY AND GENOMIC MEDICINE Nitrite, UA Negative Negative [facility] DEPARTMENT OF PATHOLOGY AND GENOMIC MEDICINE Urobilinogen, UA <2.[address] <[address]0 [facility] DEPARTMENT OF PATHOLOGY AND GENOMIC MEDICINE Leukocyte esterase, UA Negative Negative [facility] DEPARTMENT OF PATHOLOGY AND GENOMIC MEDICINE Epithelial cells, UA 3 /HPF [facility] DEPARTMENT OF PATHOLOGY AND GENOMIC MEDICINE WBC, UA 1 0 - 4 /HPF [facility] DEPARTMENT OF PATHOLOGY AND GENOMIC MEDICINE RBC, UA 6 (H) 0 - 5 /HPF [facility] DEPARTMENT OF PATHOLOGY AND GENOMIC MEDICINE Bacteria, UA Few None seen [facility] DEPARTMENT OF PATHOLOGY AND GENOMIC MEDICINE Yeast, UA None seen [facility] DEPARTMENT OF PATHOLOGY AND GENOMIC MEDICINE Yeast with pseudohyphae, None seen [facility] DEPARTMENT OF PATHOLOGY AND [employer] MEDICINE Specimen Urine Performing Organization Address [facility] [place] [address] PATHOLOGY AND [employer] MEDICINE * Partial thromboplastin time, activated (08/12/2017 11:45 AM CDT) Only the most recent of 2 results within the time period is included. PTT 28.6 23.0 - 36.[address] [facility] DEPARTMENT OF Comment: PATHOLOGY AND PTT therapeutic range for [facility] unfractionated heparin is 61.0-112.0 seconds which corresponds to Anti-Xa 0.3-0.7 U/ml. Specimen Blood Performing Organization Address [facility] [place] [address] PATHOLOGY AND [employer] [facility] * Prothrombin time with INR (08/12/2017 11:45 AM CDT) Only the most recent of 2 results within the time period is included. Prothrombin time 14.3 12.0 - 15.[address] [facility] DEPARTMENT OF PATHOLOGY AND GENOMIC MEDICINE INR 1.1 [facility] DEPARTMENT OF Comment: PATHOLOGY AND The International Normalized GENOMIC MEDICINE Ratio (INR) is a therapeutic monitoring tool for patients who are stable on oral anticoagulant therapy. An INR of 2.0-3.0 is suggested for deep vein thrombosis/pulmonary embolism. Specimen Blood Performing Organization Address [facility] [place] [address] PATHOLOGY AND GENOMIC MEDICINE * Urine culture (08/12/2017 11:45 AM CDT) Only the most recent of 2 results within the time period is included. Urine culture SEE COMMENTComment: [facility] DEPARTMENT OF Bacteriuria screen negative. PATHOLOGY AND GENOMIC MEDICINE Performing Organization Address City/State/Zipcode Phone Number [facility] DEPARTMENT OF [address] [place] [address] PATHOLOGY AND GENOMIC MEDICINE * Comprehensive metabolic panel (08/12/2017 11:45 AM CDT) Only the most recent of 2 results within the time period is included. Sodium 139 135 - 148 mEq/L [facility] DEPARTMENT OF PATHOLOGY AND GENOMIC MEDICINE Potassium 3.8 3.5 - 5.0 mEq/L [facility] DEPARTMENT OF PATHOLOGY AND GENOMIC MEDICINE Chloride 99 98 - 112 mEq/L [facility] DEPARTMENT OF PATHOLOGY AND GENOMIC MEDICINE CO2 26 24 - 31 mEq/L [facility] DEPARTMENT OF PATHOLOGY AND GENOMIC MEDICINE Anion gap 14 7 - 15 mEq/L [facility] DEPARTMENT OF Comment: PATHOLOGY AND Starting from July GENOMIC MEDICINE , anion gap calculation no longer incorporates potassium. Please note the change. BUN 11 6 - 20 mg/dL [facility] DEPARTMENT OF PATHOLOGY AND GENOMIC MEDICINE Creatinine 0.6 0.5 - 0.9 mg/dL [facility] DEPARTMENT OF PATHOLOGY AND GENOMIC MEDICINE Glucose 88 65 - 99 mg/dL [facility] DEPARTMENT OF PATHOLOGY AND GENOMIC MEDICINE Calcium 9.6 8.3 - 10.2 mg/dL [facility] DEPARTMENT OF PATHOLOGY AND GENOMIC MEDICINE Protein 7.6 6.3 - 8.3 g/dL [facility] DEPARTMENT OF Comment: PATHOLOGY AND GENOMIC MEDICINE 4.6-7.0 g/dL 1 week 4.4-7.6 g/dL 7 months-1year 5.1-7.3 g/dL 1-2 years5.6-7 .5 g/dL >3 years6.0-8 .0 g/dL 18-150 6.3-8.3 g/dL Albumin 3.3 (L) 3.5 - 5.0 g/dL [facility] DEPARTMENT OF PATHOLOGY AND GENOMIC MEDICINE A/G ratio 0.8 0.7 - 3.8 [facility] DEPARTMENT OF PATHOLOGY AND GENOMIC MEDICINE Alkaline phosphatase 76 35 - 104 U/L [facility] DEPARTMENT OF PATHOLOGY AND GENOMIC MEDICINE AST 16 10 - 35 U/L [facility] DEPARTMENT OF PATHOLOGY AND GENOMIC MEDICINE ALT 11 5 - 50 U/L [facility] DEPARTMENT OF PATHOLOGY AND GENOMIC MEDICINE Total bilirubin <0.2 0.0 - 1.2 mg/dL [facility] DEPARTMENT OF PATHOLOGY AND GENOMIC MEDICINE Specimen Plasma specimen Performing Organization Address City/[facility] [place] [place] [address] PATHOLOGY AND GENOMIC MEDICINE * Phosphorus level (07/03/2017 4:00 AM CDT) Phosphorus 2.7 2.4 - 4.5 mg/dL [facility] DEPARTMENT OF PATHOLOGY AND GENOMIC MEDICINE Specimen Plasma specimen Performing Organization Address [facility] [place] [address] PATHOLOGY AND GENOMIC MEDICINE * Magnesium level (07/03/2017 4:00 AM CDT) Magnesium 2.1 1.6 - 2.6 mg/dL [facility] DEPARTMENT OF PATHOLOGY AND GENOMIC MEDICINE Specimen Plasma specimen Performing Organization Address [facility] [place] [address] PATHOLOGY AND GENOMIC MEDICINE * XR Chest 2 Vw (06/17/2017 6:00 PM OUTREACH TEAM MEMBER) Narrative Performed At EXAMINATION:XR CHEST 2 VW RADIANT CLINICAL HISTORY:Z01.818 Encounter for other preprocedural examination, pre op COMPARISON:None IMPRESSION: No acute abnormality chest The lungs are clear. The heart is not enlarged. Mild degenerative change thoracic spine. Cervical fixator in place. Mild thoracic kyphosis [address] [facility]-[id number] Procedure Note Interface, Radiology Results Incoming - 06/17/2017 6:12 PM OUTREACH TEAM MEMBER EXAMINATION: XR CHEST 2 VW CLINICAL HISTORY: Z01.818 Encounter for other preprocedural examination, pre op COMPARISON: None IMPRESSION: No acute abnormality chest The lungs are clear. The heart is not enlarged. Mild degenerative change thoracic spine. Cervical fixator in place. Mild thoracic kyphosis [address] [facility]-[id number] Performing Organization Address [facility] [place] [address] * ECG Pre/Post Op (06/17/2017 5:43 PM OUTREACH TEAM MEMBER) Ventricular rate 63 [facility]USE Atrial rate [address] interval 170 [facility] QRSD interval 88 [facility] QT interval 438 [facility] MUSE QTC interval 448 [facility] P axis [address] [facility] MUSE QRS axis [address] [facility] MUSE T wave axis 79 [facility] MUSE EKG impression Normal sinus rhythm-Normal [facility] MUSE ECG-In automated comparison with ECG of 17-JUN-2017 17:42,-No significant change was found- Performing Organization Address City/[facility] Phone Number [facility] [address] [place] [address] * Hemoglobin A1c (06/17/2017 5:27 PM OUTREACH TEAM MEMBER) Hemoglobin A1C 5.4 4.0 - 5.6 % [facility] DEPARTMENT OF Comment: PATHOLOGY AND HbA1c cutoffs for diagnosing GENOMIC MEDICINE diabetes: 4.0% - 5.6%=normal 5.7% - 6.4%=increased risk for diabetes (prediabetes) >=6.5%=diabetes Goals for glycemic control (ADA 2016) < 7.0%Target for non adults with diabetes. More or less stringent targets may be appropriate for individual patients. <7.5% Target for Children and adolescents with type 1 diabetes. Specimen Blood Performing Organization Address City/State/Zipcode Phone Number [facility] DEPARTMENT OF [address] [place] [address] PATHOLOGY AND GENOMIC MEDICINE after 06/14/2017 Insurance Payer Benefit Subscriber ID Type Phone Address Plan / Group [facility] xxxxxxxxxxxx HMO CT IN AREA/HMO BLUE ESSENTIALS Advance Directives Patient has advance care planning documents on file. For more information, angy martin contact: Christopher Jackson [address] [place] [address]
--- OUTSIDE RECORDS SUMMARY | 2018-06-15 13:55 | XMS REPORT | CCD ---
Author Author Auto Generated Organization [facility] Address Unknown Phone Unavailable Care Team Providers Care Fourth Hand Name Role Phone Abi Vee CP Allergies, Adverse Reactions, Alerts Substance Reaction Status NKDA Active Problem List Condition Effective Dates Status Epistaxis Active Medications Medication Instructions Start Date End Date Status Rocephin 1 gm, Route: IVPB, [id number], Start 06/13/2011 06/14/2011 Discontinued date: 06/13/11 18:00:00, Duration: 30 day, Stop date: 07/12/11 18:00:00 Lactated Ringers 1,000 mL, Rate: 75 ml/hr, Infuse 06/13/2011 06/14/2011 Discontinued Injection IV 1,000 over: 13.3 hr, Route: IV, Total mL Volume: 1,000, Start date: 06/13/11 17:56:00, Duration: 30 day, Stop date: 07/13/11 17:55:00 acetaminophen-hydroc 1 tab, Route: PO, Drug Form: TAB, 06/13/2011 06/14/2011 Discontinued odone 325 mg-5 mg Q4H, PRN Pain, Start date: 06/13/11 oral tablet 21:12:00, Duration: 30 day, Stop date: 07/13/11 21:11:00 Vital Signs Most recent to oldest [Reference Range]: 1 2 3 Height 160.02 cm (06/13/2011 17:53:00) 160.02 cm (06/13/2011 17:50:00) Temperature Oral [96.4-99.1 DegF] 98.2 DegF (06/14/2011 08:00:00) 98.3 DegF (06/13/2011 17:53:00) Systolic Blood Pressure [90-140 mmHg] 159 mmHg *HI* (06/14/2011 09:32:00) 172 mmHg *HI* (06/14/2011 08:00:00) 150 mmHg *HI* (06/14/2011 04:00:00) Diastolic Blood Pressure [60-90 mmHg] 80 mmHg (06/14/2011 09:32:00) 90 mmHg (06/14/2011 08:00:00) 80 mmHg (06/14/2011 04:00:00) Respiratory Rate [14-20 BRMIN] 18 BRMIN (06/14/2011 08:00:00) 20 BRMIN (06/13/2011 17:53:00) Peripheral Pulse Rate [60-100 bpm] 64 bpm (06/14/2011 09:32:00) 62 bpm (06/14/2011 08:00:00) 67 bpm (06/14/2011 03:00:00) Weight 58.182 kg (06/13/2011 17:53:00) 58.182 kg (06/13/2011 17:50:00) Results BLOOD BANK RESULTS Most recent to oldest [Reference Range]: 1 ABO/Rh O POS *Unknown* (06/13/2011 18:53:00) Antibody Scrn Negative (06/13/2011 18:53:00) RBC product Product available (06/13/2011 18:25:00) HEMATOLOGY Most recent to oldest [Reference Range]: 1 WBC [3.7-10.4 K/CMM] 9.4 K/CMM (06/13/2011 18:00:00) RBC [4.20-5.40 M/CMM] 3.34 M/CMM *LOW* (06/13/2011 18:00:00) Hgb [12.0-16.0 g/dL] 11.4 g/dL *LOW* (06/13/2011 18:00:00) Hct [36.0-48.0 %] 32.4 % *LOW* (06/13/2011 18:00:00) MCV [81.0-99.0 fL] 97.0 fL (06/13/2011 18:00:00) MCH [27.0-31.0 pg] 34.2 pg *HI* (06/13/2011 18:00:00) MCHC [32.0-36.0 g/dL] 35.3 g/dL (06/13/2011 18:00:00) RDW [11.5-14.5 %] 14.4 % (06/13/2011 18:00:00) Platelet [133-450 K/CMM] 220 K/CMM (06/13/2011 18:00:00) MPV [7.4-10.4 fL] 7.3 fL *LOW* (06/13/2011 18:00:00) Segs [45.0-75.0 %] 66.6 % (06/13/2011 18:00:00) Lymphocytes [20.0-40.0 %] 26.0 % (06/13/2011 18:00:00) Monocytes [2.0-12.0 %] 6.6 % (06/13/2011 18:00:00) Eosinophils [0.0-4.0 %] 0.3 % (06/13/2011 18:00:00) Basophils [0.0-1.0 %] 0.5 % (06/13/2011 18:00:00) Segs-Bands # [1.5-8.1 K/CMM] 6.2 K/CMM (06/13/2011 18:00:00) Lymphocytes # [1.0-5.5 K/CMM] 2.4 K/CMM (06/13/2011 18:00:00) Monocytes # [0.0-0.8 K/CMM] 0.6 K/CMM (06/13/2011 18:00:00) Eosinophils # [0.0-0.5 K/CMM] 0.0 K/CMM (06/13/2011 18:00:00) Basophils # [0.0-0.2 K/CMM] 0.0 K/CMM (06/13/2011 18:00:00)
--- OUTSIDE RECORDS SUMMARY | 2018-06-15 13:55 | XMS REPORT | Continuity of Care Document ---
Author Author [facility] Interface Address Unknown Phone Unavailable Problems Problem Status Onset Date Classification Date Reported Comments Source UNK Active 06/13/2011 [facility] EPISTAXIS Active 06/13/2011 [facility] 784.7 [id number] Active 06/11/2011 [facility] Epistaxis Active Problem 06/16/2011 [facility] Medications Medication Details Route Status Patient Instructions Ordering Provider Order Date Source acetaminophen-hydrocodone 325 mg-5 mg oral tablet 1 tab, Route: PO, Drug Form: TAB, Q4H, PRN Pain, Start date: 06/13/11 21:12:00, Duration: 30 day, Stop date: 07/13/11 21:11:00 PO No Longer Active Devon 06/14/2011 [facility] Rocephin 1 gm, Route: IVPB, [id number], Start date: 06/13/11 18:00:00, Duration: 30 day, Stop date: 07/12/11 18:00:00 IVPB No Longer Active Devon 06/14/2011 [facility] Lactated Ringers Injection IV 1,000 mL 1,000 mL, Rate: 75 ml/hr, Infuse over: 13.3 hr, Route: IV, Total Volume: 1,000, Start date: 06/13/11 17:56:00, Duration: 30 day, Stop date: 07/13/11 17:55:00 IV No Longer Active Deovn 06/13/2011 [facility] flumazenil 0.2 mg, Route: IVP, PRN, PRN Benzodiazepine Reversal, Initial dose, Start date: 06/12/11 17:03:00, Duration: 30 day, Stop date: 07/12/11 18:02:00 IVP No Longer Active Feliberto 06/12/2011 [facility] meperidine 12.5 mg, Route: IVP, Q30Min, PRN Other -See Comment, For shivering, Start date: 06/12/11 17:03:00, Duration: 2 doses or times, Stop date: Limited # of times IVP No Longer Active Feliberto 06/12/2011 [facility] fentanyl 25 microgram, Route: IVP, Q5Min, PRN Pain Score 4-6, Start date: 06/12/11 17:03:00, Duration: 4 doses or times, Stop date: Limited # of times IVP No Longer Active Feliberto 06/12/2011 [facility] naloxone 0.04 mg, Route: IVP, Q2MIN, PRN Narcotic Reversal, Start date: 06/12/11 17:03:00, Duration: 8 doses or times, Stop date: Limited # of times IVP No Longer Active Feliberto 06/12/2011 [facility] hydromorphone 0.5 mg, Route: IVP, Q5Min, PRN Pain Score 4-6, Start date: 06/12/11 17:03:00, Duration: 5 doses or times, Stop date: Limited # of times IVP No Longer Active Feliberto 06/12/2011 [facility] ketorolac 30 mg, Route: IVP, ONCE, PRN Breakthrough Pain, Start date: 06/12/11 17:03:00, Duration: 1 doses or times, Stop date: Limited # of times IVP No Longer Active Feliberto 06/12/2011 [facility] ondansetron 4 mg, Route: IVP, ONCE, PRN Nausea & Vomiting, Start date: 06/12/11 17:03:00 IVP No Longer Active Feliberto 06/12/2011 [facility] acetaminophen-hydrocodone 325 mg-5 mg oral tablet 1 tab, Route: PO, Q4H, PRN Pain Score 1-3, Start date: 06/12/11 17:03:00, Duration: 30 day, Stop date: 07/12/11 17:02:00 PO No Longer Active Feliberto 06/12/2011 [facility] cefadroxil 500 mg oral capsule 500 mg, 1 cap, PO, Q12H, 14 cap, Substitution Allowed, CAP PO Active Devon 06/12/2011 [facility] acetaminophen-hydrocodone 325 mg-5 mg oral tablet 2 tab, PO, Q6H, PRN, 30 tab, 2, 2, for pain, Substitution Allowed, Maintenance, TAB PO Active Devon 06/12/2011 [facility] dexamethasone sodium phosphate 8 mg, Route: IV, ONCE, Start date: 06/12/11 13:29:00, Stop date: 06/12/11 13:29:00 IV No Longer Active Devon 06/12/2011 [facility] Afrin 0.05% nasal spray 2 spray, Route: NASAL, Q12H, PRN Nasal Congestion, Start date: 06/12/11 13:29:00, Duration: 3 day, Stop date: 06/15/11 13:28:00 NASAL No Longer Active Devon 06/12/2011 [facility] Rocephin 1 gm, Route: IVPB, ONCE, Start date: 06/12/11 13:28:00, Stop date: 06/12/11 13:28:00 IVPB No Longer Active Devon 06/12/2011 [facility] Lactated Ringers IV 1,000 mL 1,000 mL, Rate: 25 ml/hr, Infuse over: 40 hr, Route: IV, Total Volume: 1,000, Start date: 06/12/11 13:28:00, Duration: 1 day, Stop date: 06/13/11 13:27:00 IV No Longer Active Rivera 06/12/2011 [facility] Allergies, Adverse Reactions, Alerts Substance Category Reaction Severity Reaction type Status Date Reported Comments Source Immunizations Immunization Date Given Site Status Last Updated Comments Source Results Order Name Results Value Reference Range Date Interpretation Comments Source BLOOD BANK RESULTS Antibody Scrn Negative (06/13/2011 18:53:00) 06/14/2011 Normal [facility] BLOOD BANK RESULTS ABO/Rh O POS 06/14/2011 Unknown [facility] BLOOD BANK RESULTS RBC product Product available (06/13/2011 18:25:00) 06/14/2011 Normal [facility] HEMATOLOGY MPV 7.3 fL 7.4 - 10.4 06/14/2011 LOW [facility] HEMATOLOGY Hct 32.4 % 36.0 - 48.0 06/14/2011 LOW [facility] HEMATOLOGY MCH 34.2 pg 27.0 - 31.0 06/14/2011 HI [facility] HEMATOLOGY MCV 97.0 fL 81.0 - 99.0 06/14/2011 Normal [facility] HEMATOLOGY WBC 9.4 K/CMM 3.7 - 10.4 06/14/2011 Normal [facility] HEMATOLOGY Hgb 11.4 g/dL 12.0 - 16.0 06/14/2011 LOW [facility] HEMATOLOGY RBC 3.34 M/CMM 4.20 - 5.40 06/14/2011 LOW [facility] HEMATOLOGY RDW 14.4 % 11.5 - 14.5 06/14/2011 Normal [facility] HEMATOLOGY Platelet 220 K/CMM 133 - 450 06/14/2011 Normal [facility] HEMATOLOGY MCHC 35.3 g/dL 32.0 - 36.0 06/14/2011 Normal [facility] HEMATOLOGY Segs-Bands # 6.2 K/CMM 1.5 - 8.1 06/14/2011 Normal [facility] HEMATOLOGY Basophils # 0.0 K/CMM 0.0 - 0.2 06/14/2011 Normal [facility] HEMATOLOGY Eosinophils # 0.0 K/CMM 0.0 - 0.5 06/14/2011 Normal [facility] HEMATOLOGY Monocytes # 0.6 K/CMM 0.0 - 0.8 06/14/2011 Normal [facility] HEMATOLOGY Lymphocytes # 2.4 K/CMM 1.0 - 5.5 06/14/2011 Normal [facility] HEMATOLOGY Lymphocytes 26.0 % 20.0 - 40.0 06/14/2011 Normal [facility] HEMATOLOGY Monocytes 6.6 % 2.0 - 12.0 06/14/2011 Normal [facility] HEMATOLOGY Basophils 0.5 % 0.0 - 1.0 06/14/2011 Normal [facility] HEMATOLOGY Eosinophils 0.3 % 0.0 - 4.0 06/14/2011 Normal [facility] HEMATOLOGY Segs 66.6 % 45.0 - 75.0 06/14/2011 Normal [facility] HEMATOLOGY Hgb 11.3 g/dL 12.0 - 16.0 06/12/2011 LOW [facility] HEMATOLOGY Hct 32.2 % 36.0 - 48.0 06/12/2011 LOW [facility] Vital Signs Vital Sign Value Date Comments Source Diastolic (mm Hg) 80 06/14/2011 [facility] Systolic (mm Hg) 159 06/14/2011 [facility] Heart Rate 64 06/14/2011 [facility] Respitory Rate 18 06/14/2011 [facility] Heart Rate 62 06/14/2011 [facility] Temperature Oral (F) 98.2 F 06/14/2011 [facility] Diastolic (mm Hg) 90 06/14/2011 [facility] Systolic (mm Hg) 172 06/14/2011 [facility] Diastolic (mm Hg) 80 06/14/2011 [facility] Systolic (mm Hg) 150 06/14/2011 [facility] Heart Rate 67 06/14/2011 [facility] Weight 58.182 06/13/2011 [facility] Height 160.02 cm 06/13/2011 [facility] Respitory Rate 20 06/13/2011 [facility] Temperature Oral (F) 98.3 F 06/13/2011 [facility] Weight 58.182 06/13/2011 [facility] Height 160.02 cm 06/13/2011 [facility] Diastolic (mm Hg) 66 06/12/2011 [facility] Systolic (mm Hg) 129 06/12/2011 [facility] Respitory Rate 18 06/12/2011 [facility] Systolic (mm Hg) 132 06/12/2011 [facility] Diastolic (mm Hg) 73 06/12/2011 [facility] Respitory Rate 15 06/12/2011 [facility] Systolic (mm Hg) 122 06/12/2011 [facility] Diastolic (mm Hg) 69 06/12/2011 [facility] Respitory Rate 18 06/12/2011 [facility] Temperature Oral (F) 98.0 F 06/12/2011 [facility] Heart Rate 66 06/12/2011 [facility] Height 162.56 cm 06/12/2011 [facility] Weight 58.182 06/12/2011 [facility] Encounters Location Location Details Encounter Type Encounter Number Reason For Visit Attending Provider ADM Date DC Date Status Source [facility] DS [id number] NANCI DEVON 06/12/2011 06/12/[address] [facility] OU [id number] NANCI DEVON 06/13/2011 06/14/[address] [facility] Outpatient [id number] UNK NANCI DEVON Cancel [facility] Procedures Procedure Code Date Perfomer Comments Source
--- OUTSIDE RECORDS SUMMARY | 2018-06-15 13:55 | XMS REPORT | CCD ---
Author Author Auto Generated Organization [facility] Address Unknown Phone Unavailable Care Team Providers Care Chief Accountant Name Role Phone Abi Vee RP Allergies, Adverse Reactions, Alerts Substance Reaction Status NKDA Active Problem List Condition Effective Dates Status Epistaxis Active Medications Medication Instructions Start Date End Date Status flumazenil 0.2 mg, Route: IVP, PRN, PRN 06/12/2011 06/12/2011 Discontinued Benzodiazepine Reversal, Initial dose, Start date: 06/12/11 17:03:00, Duration: 30 day, Stop date: 07/12/11 18:02:00 meperidine 12.5 mg, Route: IVP, Q30Min, PRN 06/12/2011 06/12/2011 Discontinued Other -See Comment, For shivering, Start date: 06/12/11 17:03:00, Duration: 2 doses or times, Stop date: Limited # of times fentanyl 25 microgram, Route: IVP, Q5Min, 06/12/2011 06/12/2011 Discontinued PRN Pain Score 4-6, Start date: 06/12/11 17:03:00, Duration: 4 doses or times, Stop date: Limited # of times naloxone 0.04 mg, Route: IVP, Q2MIN, PRN 06/12/2011 06/12/2011 Discontinued Narcotic Reversal, Start date: 06/12/11 17:03:00, Duration: 8 doses or times, Stop date: Limited # of times hydromorphone 0.5 mg, Route: IVP, Q5Min, PRN Pain 06/12/2011 06/12/2011 Discontinued Score 4-6, Start date: 06/12/11 17:03:00, Duration: 5 doses or times, Stop date: Limited # of times ketorolac 30 mg, Route: IVP, ONCE, PRN 06/12/2011 06/12/2011 Discontinued Breakthrough Pain, Start date: 06/12/11 17:03:00, Duration: 1 doses or times, Stop date: Limited # of times ondansetron 4 mg, Route: IVP, ONCE, PRN Nausea 06/12/2011 06/12/2011 Discontinued & Vomiting, Start date: 06/12/11 17:03:00 acetaminophen-hydroc 1 tab, Route: PO, Q4H, PRN Pain 06/12/2011 06/12/2011 Discontinued odone 325 mg-5 mg Score 1-3, Start date: 06/12/11 oral tablet 17:03:00, Duration: 30 day, Stop date: 07/12/11 17:02:00 acetaminophen-hydroc 2 tab, Route: PO, Q4H, PRN Pain 06/12/2011 06/12/2011 Discontinued odone 325 mg-5 mg Score 4-6, Start date: 06/12/11 oral tablet 17:03:00, Duration: 30 day, Stop date: 07/12/11 17:02:00 dexamethasone sodium 8 mg, Route: IV, ONCE, Start date: 06/12/2011 06/12/2011 Completed phosphate 06/12/11 13:29:00, Stop date: 06/12/11 13:29:00 Rocephin 1 gm, Route: IVPB, ONCE, Start 06/12/2011 06/12/2011 Completed date: 06/12/11 13:28:00, Stop date: 06/12/11 13:28:00 Lactated Ringers IV 1,000 mL, Rate: 25 ml/hr, Infuse 06/12/2011 06/12/2011 Discontinued 1,000 mL over: 40 hr, Route: IV, Total Volume: 1,000, Start date: 06/12/11 13:28:00, Duration: 1 day, Stop date: 06/13/11 13:27:00 cefadroxil 500 mg 500 mg, 1 cap, PO, Q12H, 14 cap, 06/12/2011 06/19/2011 Ordered oral capsule Substitution Allowed, CAP acetaminophen-hydroc 2 tab, PO, Q6H, PRN, 30 tab, 2, 2, 06/12/2011 Ordered odone 325 mg-5 mg for pain, Substitution Allowed, oral tablet Maintenance, TAB Afrin 0.05% nasal 2 spray, Route: NASAL, Q12H, PRN 06/12/2011 06/12/2011 Discontinued spray Nasal Congestion, Start date: 06/12/11 13:29:00, Duration: 3 day, Stop date: 06/15/11 13:28:00 Vital Signs Most recent to oldest [Reference Range]: 1 2 3 Height 162.56 cm (06/12/2011 11:52:00) Temperature Oral [96.4-99.1 DegF] 98.0 DegF (06/12/2011 12:02:00) Systolic Blood Pressure [90-140 mmHg] 129 mmHg (06/12/2011 16:45:00) 132 mmHg (06/12/2011 16:30:00) 122 mmHg (06/12/2011 16:15:00) Diastolic Blood Pressure [60-90 mmHg] 66 mmHg (06/12/2011 16:45:00) 73 mmHg (06/12/2011 16:30:00) 69 mmHg (06/12/2011 16:15:00) Respiratory Rate [14-20 BRMIN] 18 BRMIN (06/12/2011 16:45:00) 15 BRMIN (06/12/2011 16:30:00) 18 BRMIN (06/12/2011 16:15:00) Peripheral Pulse Rate [60-100 bpm] 66 bpm (06/12/2011 12:02:00) Weight 58.182 kg (06/12/2011 11:52:00) Results HEMATOLOGY Most recent to oldest [Reference Range]: 1 Hgb [12.0-16.0 g/dL] 11.3 g/dL *LOW* (06/12/2011 11:53:00) Hct [36.0-48.0 %] 32.2 % *LOW* (06/12/2011 11:53:00)
[2018-06-15 14:40] LABS: BASOPHILS % 0.6 % (0.0-1.0); EOSINOPHILS % 0.6 % (0.0-6.0); HEMATOCRIT 44.8 % (34.2-44.1); HEMOGLOBIN 15.2 g/dL (12.0-16.0); LYMPHOCYTES # (AUTO) 1.4 (1.0-3.2); LYMPHOCYTES % 20.7 % (18.0-39.1); MEAN CORPUSCULAR HEMOGLOBIN 32.5 pg (28-32); MEAN CORPUSCULAR HGB CONC 33.9 g/dL (31-35); MEAN CORPUSCULAR VOLUME 95.7 fL (81-99); MONOCYTES # (AUTO) 0.4 (0.2-0.8); MONOCYTES % 6.5 % (4.4-11.3); NEUTROPHILS # (AUTO) 4.9 (2.1-6.9); NEUTROPHILS % 71.5 % (38.7-80.0); PLATELET COUNT 216 x10e3/uL (140-360); RED BLOOD COUNT 4.68 x10e6/uL (3.6-5.1); RED CELL DISTRIBUTION WIDTH 13.2 % (11.7-14.4)
[2018-06-15] MEDS ORDERED: MECLIZINE HCL 12.5 MG TAB PO ONE (14:45)
[2018-06-15 14:47] LABS: CLARITY,URINE CLEAR (CLEAR); COLOR,URINE YELLOW (YELLOW)
[2018-06-15 14:48] LABS: BILIRUBIN,URINE NEGATIVE (NEGATIVE); KETONES,URINE 1+ (NEGATIVE); LEUKOCYTE ESTERASE ,URINE NEGATIVE (NEGATIVE); NITRITE,URINE NEGATIVE (NEGATIVE); PROTEIN,URINE DIPSTICK NEGATIVE (NEGATIVE); URINE UROBILINOGEN 0.2 mg/dL (0.2 - 1)
[2018-06-15 14:54] LABS: ALANINE AMINOTRANSFERASE 12 IU/L (0-55); ALBUMIN 4.3 g/dL (3.5-5.0); ALBUMIN/GLOBULIN RATIO 1.3 (0.8-2.0); ALKALINE PHOSPHATASE 57 IU/L (40-150); ANION GAP 12.9 mmol/L (8-16); BLOOD UREA NITROGEN 13 mg/dL (7-26); BUN/CREATININE RATIO 17 (6-25); CALCIUM 9.8 mg/dL (8.4-10.2); CARBON DIOXIDE 26 mmol/L (22-29); CHLORIDE 103 mmol/L (98-107); CREATININE, SERUM 0.77 mg/dL (0.57-1.11); EST GLOMERULAR FILTRATION RATE > 60 ML/MIN (60-); GLUCOSE 116 mg/dL (74-118); POTASSIUM 3.9 mmol/L (3.5-5.1); SODIUM 138 mmol/L (136-145)
[2018-06-15 14:58] LABS: EPITHELIAL CELLS,URINE RARE /LPF; WBC,URINE (MAN) 0-5 /HPF (0-5)
--- NOTE | 2018-06-15 15:30 | Diagnostic Imaging Report ---
CT BRAIN WO HISTORY: Dizziness COMPARISON: None. TECHNIQUE: Noncontrast axial scans were obtained from skull base to the vertex. Coronal and sagittal reconstructions obtained from the axial data. One or more of the following dose reduction techniques were used: Automated exposure control, adjustment of the mA and/or kV according to patient size, and/or utilization of iterative reconstruction technique. DISCUSSION: Scalp/Skull: Unremarkable. Brain sulci: Appropriate for patient's age. Ventricles: Normal in size and configuration. No hydrocephalus. Extra-axial spaces: No masses or fluid collections. Parenchyma: Mild periventricular white matter hypodensities are likely chronic microvascular ischemic changes. Otherwise, no mass, hemorrhage, or large vascular territory acute infarct. Dural sinuses: No abnormal densities. Sellar/Suprasellar region: Partially empty sella. Skull base: Intact. Incidental findings: Small metallic density in the left infratemporal fossa is partially visualized. IMPRESSION: 1. No acute intracranial abnormalities. 2. Mild supratentorial chronic microvascular ischemic change. Signed by: Dr. Edouard Vee M.D. on 06/15/2018 3:26 PM
[2018-06-15] MEDS ORDERED: DIAZEPAM 2 MG TAB PO NR (16:00)
== END 2018-06-15 16:20 | disposition home or self-care (01) ==
LOC: ER 13:50
DX: R42 Dizziness and giddiness (principal); R11.0 Nausea; H81.13 Benign paroxysmal vertigo, bilateral
CPT/HCPCS: 36415; 70450; 80053; 81001; 85025; 93005; 99284

== ENCOUNTER 2022-08-03 13:27 | Emergency (ER) | payer BC ==
[~2022-08-03] VITALS: Ht 160 cm; Wt 75.3 kg
[2022-08-03 14:08] LABS: BASOPHILS % 0.5 % (0.0-1.0); EOSINOPHILS % 0.2 % (0.0-6.0); HEMATOCRIT 45.5 % (34.2-44.1); HEMOGLOBIN 15.7 g/dL (12.0-16.0); LYMPHOCYTES # (AUTO) 1.6 (1.0-3.2); LYMPHOCYTES % 18.8 % (18.0-39.1); MEAN CORPUSCULAR HEMOGLOBIN 33.3 pg (28-32); MEAN CORPUSCULAR HGB CONC 34.5 g/dL (31-35); MEAN CORPUSCULAR VOLUME 96.6 fL (81-99); MONOCYTES # (AUTO) 0.7 (0.2-0.8); MONOCYTES % 8.5 % (4.4-11.3); NEUTROPHILS # (AUTO) 5.9 (2.1-6.9); NEUTROPHILS % 71.6 % (38.7-80.0); PLATELET COUNT 212 x10e3/uL (140-360); RED BLOOD COUNT 4.71 x10e6/uL (3.6-5.1); RED CELL DISTRIBUTION WIDTH 13.3 % (11.7-14.4)
[2022-08-03 14:28] LABS: ALBUMIN 4.2 g/dL (3.5-5.0); ALBUMIN/GLOBULIN RATIO 1.1 (0.8-2.0); ANION GAP 15.2 mmol/L (8-16); CALCIUM 9.5 mg/dL (8.4-10.2); CREATININE, SERUM 0.75 mg/dL (0.57-1.11); POTASSIUM 4.2 mmol/L (3.5-5.1)
== END 2022-08-03 15:30 | disposition home or self-care (01) ==
LOC: ER 13:47
DX: R06.02 Shortness of breath (principal); R07.9 Chest pain, unspecified; J44.9 Chronic obstructive pulmonary disease, unspecified; I10 Essential (primary) hypertension; F32.A Depression, unspecified; F17.210 Nicotine dependence, cigarettes, uncomplicated
CPT/HCPCS: 36415; 71045; 80053; 84484; 85025; 93005; 99284